=== PATIENT | male | born 1950 | race Caucasian/White ===

== ENCOUNTER 2018-04-07 15:17 | Day surgery (SDC) | payer MEDICARE, OTHER ==
[~2018-04-07] VITALS: Ht 167.6 cm; Wt 91.2 kg
[2018-04-07] VITALS (7 sets, daily range): BP systolic 103–118; BP diastolic 34–73
[~2018-04-07 15:17] MED LIST: ALPR-623 PO; ASPI-611 PO; ATOR80TA PO; CARV6.253 PO; DULO-31 PO; NICO-669 BC; NITR0.4T SL
[2018-04-07] MEDS ORDERED: normal saline 1000ml 1,000 ML IV SCH ×2 (15:45→19:00)
[2018-04-07] MEDS ORDERED: diphenhydrAMINE 25mg capsule PO PRN ×2 (15:45→19:00)
[2018-04-07] MEDS ORDERED: LORazepam 0.5 MG tablet PO PRN ×2 (15:45→19:00)
[2018-04-07] MEDS ORDERED: pneumococcal 23-VAL P-sac vacc 25 mcg/0.5ml vial IMVAC ONE (16:57)
[2018-04-07] MEDS ORDERED: LIDOcaine 1% (10mg/ml)w/preservative injection 20ml MDV ONE (17:17)
[2018-04-07] MEDS ORDERED: fentaNYL/PF 50MCG/1 ML 2ML syringe ONE (17:17)
[2018-04-07] MEDS ORDERED: midazolam 2 mg/2 ml injection ONE (17:17)
[2018-04-07] MEDS ORDERED: iohexol 350MG/ML 100ml bottle IV ONE (17:18)
[2018-04-07] MEDS ORDERED: CYCL10TA26 PO (17:25)
[2018-04-07] MEDS ORDERED: MELO-102 PO (17:25)
[2018-04-07] MEDS ORDERED: HYDROcodone/acetaminophen 10/325mg tab PO PRN (19:05)
[2018-04-07] MEDS ORDERED: HYDROcodone/acetaminophen 5mg/325mg tablet PO PRN (19:05)
[2018-04-07] MEDS ORDERED: OXAZEpam 15mg capsule PO PRN (19:05)
[2018-04-07] MEDS ORDERED: proCHLORperazine 10 MG/2 ml inj IV PRN (19:05)
[2018-04-07] MEDS ORDERED: ondansetron/PF 4mg/2ml inj IV PRN (19:05)
== END 2018-04-07 21:00 | disposition home or self-care (01) ==
LOC: SSTAY O 15:17
PROVIDERS: ATTEND Internal Medicine Interventional Cardiology
DX: I25.118 Atherosclerotic heart disease of native coronary artery with other forms of angina pectoris (principal); I25.2 Old myocardial infarction; E78.5 Hyperlipidemia, unspecified; I44.4 Left anterior fascicular block; K21.9 Gastro-esophageal reflux disease without esophagitis; Z95.5 Presence of coronary angioplasty implant and graft; Z23 Encounter for immunization; Z79.82 Long term (current) use of aspirin; Z88.1 Allergy status to other antibiotic agents; Z88.0 Allergy status to penicillin; Z86.74 Personal history of sudden cardiac arrest; Z87.891 Personal history of nicotine dependence; Z90.49 Acquired absence of other specified parts of digestive tract; Z87.442 Personal history of urinary calculi; Z87.828 Personal history of other (healed) physical injury and trauma; Z98.890 Other specified postprocedural states; Z79.899 Other long term (current) drug therapy; Z82.49 Family history of ischemic heart disease and other diseases of the circulatory system; Z84.1 Family history of disorders of kidney and ureter
CPT/HCPCS: 90732; 93005; 93458; 99152; A6257; J1644; J2001; J2250; J3010; J7030; Q0163; Q9967; A4620; C1769

== ENCOUNTER 2019-12-20 18:39 | Emergency (ER) | payer MEDICARE, OTHER ==
[~2019-12-20] VITALS: Ht 170.2 cm; Wt 90.9 kg
[~2019-12-20 18:39] MED LIST changes: -ALPR-623 PO; -CARV6.253 PO; +CYCL10TA26 PO; +MELO-102 PO; -NICO-669 BC
[2019-12-20] MEDS ORDERED: normal saline 1000ML IV soln IVB ONE (19:05)
[2019-12-20 19:27] LABS: CLARITY,URINE CLEAR (Clear); COLOR,URINE YELLOW (Yellow); GLUCOSE, URINE NEGATIVE (Neg); KETONES,URINE TRACE mg/dl (Neg); LEUKOCYTE ESTERASE ,URINE NEGATIVE (Neg); NITRITES, URINE NEGATIVE (Neg); OCCULT BLOOD,URINE LARGE (Neg); PROTEIN,URINE 100 mg/dl (Neg)
[2019-12-20 19:28] LABS: BASOPHILS % (AUTO) 0.5 % (0-1); EOSINOPHILS # (AUTO) 0.1 X10'3 (0-0.9); EOSINOPHILS % (AUTO) 0.7 % (0-6); HEMATOCRIT 42.7 % (42.0-52.0); HEMOGLOBIN 14.4 g/dl (14.0-17.9); LYMPHOCYTES # (AUTO) 1.1 X10'3 (1.1-4.8); LYMPHOCYTES % (AUTO) 11.5 % (21-51); MEAN CORPUSCULAR HGB CONC 33.8 g/dL (33.0-36.5); MEAN CORPUSCULAR VOLUME 94.6 FL (78-98); MEAN PLATELET VOLUME 8.7 FL (7.4-10.4); MONOCYTES # (AUTO) 0.4 X10'3 (0-0.9); MONOCYTES % (AUTO) 4.2 % (2-12); NEUTROPHILS # (AUTO) 8.1 X10'3 (1.8-7.7); NEUTROPHILS % (AUTO) 83.1 % (42-75); PLATELET COUNT 247 X10'3 (140-440); RED BLOOD COUNT 4.51 X10'6 (4.70-6.10); RED CELL DISTRIBUTION WIDTH 14.1 % (11.5-14.5); WHITE BLOOD COUNT 9.8 X10'3 (4.5-11.0)
[2019-12-20 19:33] LABS: UA COLLECTION TYPE CLN CATCH MIDSTREAM
[2019-12-20 19:33] LABS: ALANINE AMINOTRANSFERASE 28 U/L (12-78); ALBUMIN 3.3 G/DL (3.4-5.0); ALBUMIN/GLOBULIN RATIO 1.1 (1.1-1.5); ALKALINE PHOSPHATASE 78 IU/L (46-116); ANION GAP 5 (8-16); ASPARTATE AMINO TRANSFERASE 21 U/L (10-37); BILIRUBIN,TOTAL 1.3 MG/DL (0.1-1.0); BLOOD UREA NITROGEN 17 MG/DL (7-18); BUN/CREATININE RATIO 13.4 (5.4-32.0); CALCIUM 8.3 MG/DL (8.5-10.1); CHLORIDE 108 MMOL/L (99-107); CREATININE 1.27 MG/DL (0.60-1.10); GLUCOSE 117 MG/DL (70-104); LIPASE 138 U/L (73-393); POTASSIUM 3.8 MMOL/L (3.5-5.1); SODIUM 142 MMOL/L (135-145); TOTAL CARBON DIOXIDE 29.2 MMOL/L (24-32); TOTAL PROTEIN 6.4 G/DL (6.4-8.2); eGFR 56 ML/MIN
[2019-12-20 19:34] LABS: BACTERIA,URINE NONE SEEN /HPF (Neg); SQUAMOUS EPITHELIAL CELL,UR FEW /LPF (FEW); WBC,URINE NONE SEEN /HPF (0-4)
[2019-12-20] MEDS ORDERED: FLO0.4C PO (21:15)
[2019-12-20] MEDS ORDERED: HYDR-3965 PO (21:15)
[2019-12-20 21:38] VITALS: BP 132/80
== END 2019-12-20 21:39 | disposition home or self-care (01) ==
LOC: ER 18:39
DX: N20.1 Calculus of ureter (principal); M54.5 Low back pain; R10.9 Unspecified abdominal pain; R11.0 Nausea; I25.2 Old myocardial infarction; Z90.49 Acquired absence of other specified parts of digestive tract; Z88.0 Allergy status to penicillin; Z79.2 Long term (current) use of antibiotics; Z79.82 Long term (current) use of aspirin; Z79.899 Other long term (current) drug therapy
CPT/HCPCS: 36415; 74176; 80053; 81001; 83690; 85025; 96360; 99284; J7030